=== PATIENT | female | born 1985 | race Caucasian/White ===

== ENCOUNTER 2022-12-11 21:42 | Emergency (ER) | payer MEDICAID ==
[~2022-12-11] VITALS: Ht 165.1 cm; Wt 70.0 kg
[2022-12-11 21:52] VITALS: BP 133/86; PULSE 104; RESP 16; TEMP 98.2; O2SAT 97
== END 2022-12-11 22:44 ==
LOC: ER 21:43
DX: M25.532 Pain in left wrist (principal); V87.7XXA Person injured in collision between other specified motor vehicles (traffic), initial encounter; Y93.89 Activity, other specified; Y92.89 Other specified places as the place of occurrence of the external cause; Y99.8 Other external cause status
CPT/HCPCS: 99283